=== PATIENT | male | born 1970 | race Two or more races ===

== ENCOUNTER 2017-10-18 10:59 | Emergency (ER) | payer SELFPAY ==
[~2017-10-18] VITALS: Ht 170.2 cm; Wt 73.0 kg
[2017-10-18 11:20] VITALS: BP 108/70
== END 2017-10-18 15:06 | disposition home or self-care (01) ==
LOC: ER 13:04
DX: S92.354A Nondisplaced fracture of fifth metatarsal bone, right foot, initial encounter for closed fracture (principal); X58.XXXA Exposure to other specified factors, initial encounter; Y93.89 Activity, other specified; Y92.89 Other specified places as the place of occurrence of the external cause; Z88.0 Allergy status to penicillin
CPT/HCPCS: 29515; 73630; 99284